=== PATIENT | male | born 1975 | race Caucasian/White ===

== ENCOUNTER 2016-08-10 18:55 | Emergency (ER) | payer OTHER ==
[2016-08-10 20:18] LABS: HEMOGLOBIN 15.2 gm/dl (14.0-17.5); RED BLOOD COUNT 4.63 M/UL (4.20-5.50); WHITE BLOOD COUNT 11.1 K/UL (4.5-11.0)
[2016-08-10 20:43] LABS: BUN/CREATININE RATIO 6 (0-10)
== END 2016-08-10 21:38 | disposition home or self-care (01) ==
LOC: ER1 18:55
PROVIDERS: Specialist/Technologist Athletic Trainer
DX: R07.89 Other chest pain (principal); I21.3 ST elevation (STEMI) myocardial infarction of unspecified site; F17.210 Nicotine dependence, cigarettes, uncomplicated; G89.29 Other chronic pain; M54.9 Dorsalgia, unspecified; E87.6 Hypokalemia; Z95.5 Presence of coronary angioplasty implant and graft; Z79.82 Long term (current) use of aspirin; Z79.899 Other long term (current) drug therapy; Z88.0 Allergy status to penicillin
CPT/HCPCS: 36415; 71010; 80053; 82550; 82553; 83874; 84484; 85025; 93005; 99285